=== PATIENT | male | born 1995 | race Caucasian/White ===

== ENCOUNTER 2019-06-17 17:15 | Emergency (ER) | payer BC ==
[~2019-06-17] VITALS: Ht 175.3 cm; Wt 70.5 kg
[2019-06-17 19:34] LABS: LYMPHOCYTES # (AUTO) 1.1 X10'3 (1.1-4.8); LYMPHOCYTES % (AUTO) 7.7 % (21-51); MONOCYTES # (AUTO) 1.4 X10'3 (0-0.9)
[2019-06-17 19:36] LABS: BASOPHILS % (AUTO) 0.1 % (0-1); EOSINOPHILS % (AUTO) 0 % (0-6); HEMATOCRIT 47.5 % (42.0-52.0); HEMOGLOBIN 15.9 g/dl (14.0-17.9); MEAN CORPUSCULAR HEMOGLOBIN 30.2 PG (27.0-31.0); MEAN CORPUSCULAR HGB CONC 33.5 g/dL (33.0-36.5); MEAN PLATELET VOLUME 9.1 FL (7.4-10.4); MONOCYTES % (AUTO) 9.8 % (2-12); NEUTROPHILS # (AUTO) 12.1 X10'3 (1.8-7.7); NEUTROPHILS % (AUTO) 82.4 % (42-75); PLATELET COUNT 160 X10'3 (140-440); RED BLOOD COUNT 5.28 X10'6 (4.70-6.10); RED CELL DISTRIBUTION WIDTH 13.3 % (11.5-14.5); WHITE BLOOD COUNT 14.7 X10'3 (4.5-11.0)
[2019-06-17 19:43] LABS: D-DIMER 0.56 MG/L FEU (0-0.50)
[2019-06-17 19:48] LABS: ALANINE AMINOTRANSFERASE 207 U/L (12-78); ALBUMIN/GLOBULIN RATIO 0.9 (1.1-1.5); ALKALINE PHOSPHATASE 90 IU/L (46-116); ANION GAP 7 (8-16); ASPARTATE AMINO TRANSFERASE 47 U/L (10-37); BILIRUBIN,TOTAL 0.5 MG/DL (0.1-1.0); BLOOD UREA NITROGEN 12 MG/DL (7-18); BUN/CREATININE RATIO 10.1 (5.4-32.0); CALCIUM 9.5 MG/DL (8.5-10.1); CHLORIDE 101 MMOL/L (99-107); CREATININE 1.19 MG/DL (0.60-1.10); GLUCOSE 100 MG/DL (70-104); POTASSIUM 4.1 MMOL/L (3.5-5.1); SODIUM 138 MMOL/L (135-145); TOTAL CARBON DIOXIDE 29.6 MMOL/L (24-32); TOTAL PROTEIN 8.5 G/DL (6.4-8.2); eGFR 74 ML/MIN
--- NOTE | 2019-06-17 20:00 | NUR ---
PATIENT COMPLAINS OF INTERMITTENT COUGH, CONGESTION REMAINS. PAIN REMAINS WITH DEEP BREATH. NO SOB. NO N/V AT THIS POINT.
[2019-06-17] MEDS ORDERED: GUAI1TBM19 PO (20:20)
[2019-06-17] MEDS ORDERED: ALBU6.7H9 INH (20:20)
[2019-06-17] MEDS ORDERED: AZIT250T2 PO (20:20)
[2019-06-17 20:47] VITALS: BP 138/81
== END 2019-06-17 20:51 | disposition home or self-care (01) ==
LOC: ER 17:15
DX: J20.9 Acute bronchitis, unspecified (principal); Z20.828 Contact with and (suspected) exposure to other viral communicable diseases; R07.89 Other chest pain
CPT/HCPCS: 36415; 71045; 80053; 85025; 85379; 87635; 99284